=== PATIENT | female | born 1945 | race Caucasian/White ===

== ENCOUNTER 2017-07-07 08:41 | Day surgery (SDC) | payer OTHER, MEDICAID ==
[2017-07-07] MEDS ORDERED: DUREZOL OPHTH 1 DOSE AFFEYE ONE (09:00)
[2017-07-07] MEDS ORDERED: VIGAMOX 0.5% OPHTH 1 DOSE AFFEYE ONE ×4 (09:05→12:48)
[2017-07-07] MEDS ORDERED: PROLENSA OPHTH 1 DOSE AFFEYE ONE (09:16)
[2017-07-07] MEDS ORDERED: NS 500 ML IV 500 ML IV ONE (09:16)
[2017-07-07] MEDS ORDERED: ALPHAGAN-P OPHTH 1 DOSE AFFEYE ONE (09:17)
[2017-07-07] MEDS ORDERED: MYDRIACIL OPHTH 1 DOSE AFFEYE ONE ×3 (09:18→09:20)
[2017-07-07] MEDS ORDERED: CYCLOGYL 1% OPHTH 1 DOSE OP ONE ×3 (09:18→09:20)
[2017-07-07] MEDS ORDERED: AK-DILATE 2.5% OPHTH 1 DOSE OP ONE ×3 (09:18→09:20)
[2017-07-07] MEDS ORDERED: D5 1/2 NS 1000 ML 1,000 ML IV ONE (09:23)
[2017-07-07] MEDS ORDERED: TETRACAINE 0.5% OPHTH 1 DOSE AFFEYE ONE ×3 (12:42→12:56)
[2017-07-07] MEDS ORDERED: BETADINE OPHTH SOLN 5% EACHEYE ONE (12:42)
[2017-07-07] MEDS ORDERED: ADRENALINE CHL INJ IJ ONE (12:47)
[2017-07-07] MEDS ORDERED: DUOVISC IO ONE (12:48)
[2017-07-07] MEDS ORDERED: XYLOCAINE-MPF 1% IJ ONE (12:48)
[2017-07-07] MEDS ORDERED: BSS OPHTH (PLAIN) 500 ML with VANCOMYCIN HCL 500 MG VIAL 25 MG, ADRENALINE CHL INJ 1 MG IR ONE ×6 (12:49)
[2017-07-07] MEDS ORDERED: DUONEB 0.5 MG/3 MG NEB ONE (13:21)
--- NOTE | 2017-07-07 14:28 | RAD ---
HISTORY: Shortness of breath Study: Single-view of the chest Comparison: None Findings: The trachea is midline. The cardiac silhouette is enlarged with prominence of the central pulmonary vasculature. Increased interstitial markings are also noted. . IMPRESSION: 1. Cardiomegaly with prominence of the central pulmonary vasculature and increased interstitial sheldon ings. Reported By:
[2017-07-07 16:27] VITALS: BP 133/78
== END 2017-07-07 15:30 | disposition home or self-care (01) ==
LOC: SURG1 08:41
PROVIDERS: ATTEND Ophthalmology
PROC: 08RK3JZ Replacement of Left Lens with Synthetic Substitute, Percutaneous Approach (ICD-10-PCS; principal; 2017-07-07 15:00)
PROC: 08DK3ZZ Extraction of Left Lens, Percutaneous Approach (ICD-10-PCS; principal; 2017-07-07 15:00)
DX: H25.12 Age-related nuclear cataract, left eye (principal); H25.012 Cortical age-related cataract, left eye
CPT/HCPCS: 36415; 71010; 82947; 94640; J0170; J3370; J7042; J7620

== ENCOUNTER 2017-08-10 23:18 | Emergency (ER) | payer OTHER, MEDICAID ==
[2017-08-10 23:43] VITALS: BMI 38.2
[2017-08-10] MEDS ORDERED: MORPHINE SULFATE INJ 4 MG IVP ONE (23:44)
[2017-08-10] MEDS ORDERED: MORPHINE SULFATE INJ 4 MG ONE (23:47)
--- NOTE | 2017-08-10 23:48 | DR.EXTPAIN ---
HPI - Time seen Time seen: 23:30 - Complaint/Symptoms Chief Complaint Doctor Comments: Patient presents from the correction from [facility]; she was being helped from bed. she slipped hit her head,injured her right shoulder, neck and right knee. Severity of pain is 10/10, sharp, duration less than 3 hours, modifying factor movement. The edema of right foot is from prior medical problem. PMH - PMH Past Surgical History: Yes Unable to Obtain Due To: denies: Altered mental status ROS - Review of Systems Constitutional: No Symptoms Reported Eyes: No Symptoms Reported ENTM: No Symptoms Reported Respiratoy: No Symptoms Reported Cardiovascular: No Symptoms Reported Gastrointestinal/Abdominal: No Symptoms Reported Genitourinary: No Symptoms Reported Neurological: No Symptoms Reported Musculoskeletal: Joint Pain (right knee), Neck, Shoulder (right), Knee (right knee) Integumentary: No Symptoms Reported Hematologic/Lymphatic: No Symptoms Reported Endocrine: No Symptoms Reported Psychiatric: No Symptoms Reported All Other Systems: Reviewed and Negative PE - Vital Signs Vitals: Temperature 97.0 F Pulse Rate [Apical] 88 Pulse Rate 122 Respiratory Rate 22 Blood Pressure [Left Arm] 77/45 Blood Pressure 105/55 O2 Sat by Pulse Oximetry 95 - General Limitations: No Limitations General Appearance: Alert - Head Head Exam: Normal Inspection, Atraumatic - Eyes Eye exam: Normal Appearance, PERRL, EOMI - ENT ENT Exam: Normal Exam - Neck Neck Exam: Normal Inspection - Chest Chest Inspection: Normal Inspection - Respiratory Respiratory Exam: Normal Lung Sounds Bilat Respiratory Exam: Bilateral Clear to Auscultation - Cardiovascular Cardiovascular Exam: Regular Rate, Normal Rhythm - Abdominal Exam Abdominal Exam: Normal Inspection Abdominal Tenderness: negative: RUQ, RLQ, LUQ, LLQ, Epigastrium, Suprapubic, Diffuse, Mild, Moderate, Severe, Other - Extremities Extremities Exam: Normal Inspection, Full ROM - Upper Extremities Shoulder Exam: Normal Inspection Arm Exam: Normal Inspection Elbow Exam: Normal Inspection Forearm Exam: Normal Inspection, Tenderness Hand Exam: Normal Inspection Neuromotor Exam: Normal Exam Neurosensory Exam: Normal Exam Hand Tendon Exam: Flexor Digitorium Profundus (Location), Flexor Digitorium Superficialis (Location) Upper Ext. Vascular Exam: Capillary Refill, Radial Pulse - Lower Extremities Hip/Pelvis Exam: Normal Inspection. negative: Tenderness, Deformity Upper Leg Exam: Normal Inspection Knee Exam: Tenderness Lower Leg Exam: Normal Inspection Ankle Exam: Normal Inspection Foot/Toe Exam: Full ROM, Deformity (right foot edema ). negative: Tenderness Neurovascular/Tendon Exam: Normal Capillary Refill - Back Back Exam: Normal Inspection - Neurological Neurological Exam: Alert, Oriented X3, CN II-XII Intact - Psychiatric Psychiatric Exam: Normal Affect - Skin Skin Exam: Warm, Dry, Intact Distribution: Generalized Course - Treatment Treatment: Patient had a cardiac arrest in preperation to transfer to another facility due to no beds available at present facility. At 0330 the code was called due to cardiac arrest and was called at 0417 and pronounced . Please refer to medication log. Her labs showed a metabolic acidosis with hyperkalemia (8.5). In addition to the cardiac resuscitation medications; her hyperkalemia was also treated per protocol. - Reevaluation 1st: Improved ROR - Labs Reviewed Result Diagrams: 08/11/17 03:15 Laboratory: Sodium 136 mmol/L (136-145) 08/11/17 03:15 Corrected Sodium 137 mmol/L (136-145) 08/11/17 03:15 Potassium 8.5 mmol/L (3.5-5.1) H* 08/11/17 03:15 Chloride 104 mmol/L (98-107) 08/11/17 03:15 Carbon Dioxide 13.9 mmol/L (21-32) L* 08/11/17 03:15 BUN 97 mg/dL (7-18) H 08/11/17 03:15 Creatinine 4.50 mg/dL (0.55-1.02) H 08/11/17 03:15 Est GFR (MDRD) Af Amer 12 (>60) L 08/11/17 03:15 Est GFR (MDRD) Non-Af 10 (>60) L 08/11/17 03:15 Glucose 161 mg/dL (65-99) H 08/11/17 03:15 POC Glucose (mg/dL) 152 mg/dL (65-99) H 08/11/17 01:28 Calcium 8.3 mg/dL (8.5-10.1) L 08/11/17 03:15 Corrected Calcium 9.3 mg/dL (8.5-10.1) 08/11/17 03:15 Total Bilirubin 0.30 mg/dL (0.2-1.0) 08/11/17 03:15 AST 31 Units/L (15-37) 08/11/17 03:15 ALT 31 Units/L (12-78) 08/11/17 03:15 Alkaline Phosphatase 137 Units/L (46-116) H 08/11/17 03:15 Total Protein 6.6 g/dL (6.4-8.2) 08/11/17 03:15 Albumin 2.7 g/dL (3.4-5.0) L 08/11/17 03:15 Globulin 3.9 g/dL (2.5-4.5) 08/11/17 03:15 Albumin/Globulin Ratio 0.7 Ratio (1.1-2.1) L 08/11/17 03:15 - XRAY XRAY Interpreted by: Radiologist (Ct Brain: negative;CT right shoulder w/o: There is impacted fracture of the proximal humerus centered at the surgical neck. The fracture extends into the right greater tuberosity without displacement of the right greater tuberosity. There is no definite lesser tuberosity etension. Humeral head remains well positioned within the glenoid fossa. There is no fracture identified within the glenoid or scapula. AC joint demonstrates normal alignment with mild degenerative change. There is a moderate sized joint effusion/hemarthrosis. There is no axillary adenopathy on the right. [place] artifact limits evaluation for rib fracture. There is a moderate right sided pleural effusion. Impression: Impacted fracture of proximal right humerus centered at the surgical neck with extension of fracture into a nondisplaced greater tuberosity fracture. The right humeral head remains well positioned within the glenoid fossa. Cervical spine:) - Diagnosis Discharge Problem: Impacted Fx of Prox right humerus, Rt Knee moderate joint effusion/hemrthro, Rt sided pleural effusion, Cardiac arrest, Metabolic acidosis Acute renal failure (ARF) Qualifiers: Acute renal failure type: unspecified Qualified Code(s): N17.9 - Acute kidney failure, unspecified - Discharge Plan Condition: Stable - Follow ups/Referrals Follow ups/Referrals: PATITO WILLIAMSON [Primary Care Provider] - 3 days - Instructions
--- NOTE | 2017-08-11 00:47 | CT ---
CT brain without contrast Indication: Headache post fall Comparison: None available Technique: Multiple axial images of the brain were obtained from the skull base to the vertex without administra tion of IV contrast. Findings: Moderate generalized cerebral atrophy with mild bilateral periventricular deep white matter hypoatten uation likely in the setting of chronic microvascular ischemic disease. Hypoattenuation within the le ft paramedian joseph suspicious for subacute/chronic pontine infarct. No acute intraparenchymal hemorrhage or mass can be identified. No extra-axial fluid collections are seen. No alteration in the attenuation of the brain parenchyma can be identified to suggest acute o r subacute ischemic change. The ventricular system is symmetric and nondilated. The extracranial st ructures are grossly unremarkable. IMPRESSION: 1. No acute intracranial hemorrhage. 2. Generalized cerebral atrophy with bilateral periventricular and deep white matter hypoattenuation is nonspecific however likely represent sequela of chronic microvascular ischemic disease. 2. Small round hypoattenuating area within the left paramedian joseph suspected to represent a chronic pontine infarct. Reported By:
--- NOTE | 2017-08-11 00:51 | CT ---
CT cervical spine without contrast Indication: Neck pain after fall Comparison: None available Technique: Multiple axial images of the cervical spine were obtained from the skull base to the thora cic inlet without administration of IV contrast. Sagittal and coronal reformats were performed and r eviewed. Findings: Alignment of the cervical spine is maintained. No evidence for acute cortical disruption or subluxat ion can be seen. The posterior elements appear unremarkable. The prevertebral soft tissues are norm al in their appearance. In addition, the surrounding paraspinous soft tissues are unremarkable. Bilateral moderate-size pleural effusions. There is heterogeneous attenuation enlargement of the righ t lobe of thyroid gland with peripheral calcifications suspicious for underlying thyroid nodule/mass. Moderate calcified atherosclerotic disease of the internal carotid arteries bilaterally. IMPRESSION: No evidence for traumatic injury of the cervical spine. Enlargement of the right lobe of thyroid gland with hypoattenuation and peripheral calcifications not ed. Correlation with nonemergent thyroid sonogram is needed as this may represent a thyroid goiter; however a dominant thyroid nodule and/or thyroid malignancy is not excluded by this examination. Moderate bilateral pleural effusions. Reported By:
--- NOTE | 2017-08-11 00:54 | CT ---
CT right knee without contrast. Indication: Knee pain after fall Technique: 2 mm axial images of the right knee without IV contrast administration. Coronal and sagitt al reformatted images were performed. Findings: There is severe osteopenia noted throughout the right knee. There is no fracture or disloca tion of the right knee. There is moderate tricompartmental joint space loss and degenerative changes noted. There is a small suprapatellar joint effusion. Moderate diffuse subcutaneous edema is noted as well. Small osteochondral body is noted within the medial patellofemoral compartment. Impression: 1.No acute fracture or dislocation within the right knee. 2. Advanced osteopenia with tricompartmental degenerative change of the right knee. 3. Moderate circumferential soft tissue swelling/edema. Reported By:
--- NOTE | 2017-08-11 00:56 | CT ---
CT right shoulder without contrast Indication: Shoulder pain after fall Technique: 2 mm axial images with coronal and sagittal reformatted images of the right shoulder perfo rmed without IV contrast administration. Findings: There is impacted fracture of the proximal humerus centered at the surgical neck. The fract ure extends into the right greater tuberosity without displacement of the right greater tuberosity. T here is no definite lesser tuberosity extension. Humeral head remains well positioned within the austen oid fossa. There is no fracture identified within the glenoid or scapula. AC joint demonstrates julia l alignment with mild degenerative change. There is a moderate-sized joint effusion/hemarthrosis. The re is no axillary adenopathy on the right. Motion artifact limits evaluation for rib fracture. There is a moderate right-sided pleural effusion. Impression: Impacted fracture of proximal right humerus centered at the surgical neck with extension of fracture into a nondisplaced greater tuberosity fracture. The right humeral head remains well posi tioned within the glenoid fossa. Reported By:
[2017-08-11] MEDS ORDERED: MORPHINE SULFATE INJ 4 MG IVP ONE (01:20)
[2017-08-11] MEDS ORDERED: MORPHINE SULFATE INJ 4 MG ONE (01:21)
[2017-08-11] MEDS ORDERED: NS 1000 ML 1,000 ML IV ONE (01:52)
[2017-08-11] MEDS ORDERED: NS 1000 ML 1,000 ML ONE (01:53)
[2017-08-11] MEDS ORDERED: DOPAMINE IV PREMIX 400 MG 400 MG/250 ML BAG IV PRN (03:02)
[2017-08-11] MEDS ORDERED: DOPAMINE IV PREMIX 400 MG 400 MG/250 ML BAG IV ONE (03:12)
[2017-08-11 03:32] LABS: ALBUMIN 2.7 g/dL (3.4-5.0); CALCIUM 8.3 mg/dL (8.5-10.1); COR CA(FOR HYPOALB) 9.3 mg/dL (8.5-10.1); CREATININE 4.5 mg/dL (0.55-1.02); TOTAL PROTEIN 6.6 g/dL (6.4-8.2)
[2017-08-11 03:37] VITALS: BP 77/45
[2017-08-11] MEDS ORDERED: ADRENALINE CHL INJ (ABBOJECT) IVP ONE ×4 (03:44→04:14)
[2017-08-11] MEDS ORDERED: SODIUM BICARBONATE 8.4% INJ ADULT IVP ONE ×3 (03:50→04:03)
[2017-08-11] MEDS ORDERED: LASIX IVP SCH (04:00)
[2017-08-11] MEDS ORDERED: HumuLIN R ONE (04:01)
[2017-08-11] MEDS ORDERED: D50W ABBOJECT SYR IV ONE (04:02)
[2017-08-11] MEDS ORDERED: CALCIUM GLUCONATE 10% IV ONE ×2 (04:02→04:05)
[2017-08-11] MEDS ORDERED: HumuLIN R SUBCUT ONE (04:04)
[2017-08-11] MEDS ORDERED: LASIX IVP ONE ×2 (04:05→04:08)
[2017-08-11 04:08] LABS: CARBON DIOXIDE 13.9 mmol/L (21-32)
== END 2017-08-11 07:58 | disposition expired ==
LOC: ER 23:18
PROC: 5A12012 Performance of Cardiac Output, Single, Manual (ICD-10-PCS; principal; 2017-08-10)
PROC: 0D9670Z Drainage of Stomach with Drainage Device, Via Natural or Artificial Opening (ICD-10-PCS; principal; 2017-08-10)
DX: N17.9 Acute kidney failure, unspecified (principal); I46.9 Cardiac arrest, cause unspecified; S42.214A Unspecified nondisplaced fracture of surgical neck of right humerus, initial encounter for closed fracture; J90 Pleural effusion, not elsewhere classified; M25.461 Effusion, right knee; E87.2 Acidosis; G31.9 Degenerative disease of nervous system, unspecified; W01.198A Fall on same level from slipping, tripping and stumbling with subsequent striking against other object, initial encounter; Y92.129 Unspecified place in nursing home as the place of occurrence of the external cause; I51.7 Cardiomegaly
CPT/HCPCS: 36415; 43753; 51702; 70450; 71010; 72125; 73200; 73700; 80053; 92950; 93041; 96365; 96367; 96374; 96375; 99283; 99285; 99291; J0170; J0610; J1265; J1815; J1940; J2270; J3490